=== PATIENT | male | born 1990 | race African-American/Black ===

== ENCOUNTER 2018-08-26 15:08 | Emergency (ER) | payer OTHER ==
[~2018-08-26] VITALS: Ht 185.4 cm; Wt 85.3 kg
[2018-08-26] MEDS ORDERED: D-ME118S2 PO (15:41)
[2018-08-26] MEDS ORDERED: AZIT250T6 PO (15:41)
--- NOTE | 2018-08-26 15:41 | PHYS DOC ---
Past History Past Medical History: No Pertinent History Past Surgical History: No Surgical History Smoking: Cigarettes, Less than 1pk/day Alcohol Use: None Drug Use: None Adult General Chief Complaint Chief Complaint: COUGH HPI HPI Patient is a 28-year-old male presents with a cough for the past week and a leach lf. 5 days ago he experienced fevers for 3 days. That has been doing better. He has had minimal relief with [id number] cough medicines. Nonproductive cough. Patient smokes approximately 3 cigarettes a day. No PE risk factors. No chest pain or palpitations. No recent travel.[] Review of Systems Review of Systems Constitutional: See history of present illness[] Eyes: Denies change in visual acuity, redness, or eye pain [] HENT: Denies nasal congestion or sore throat [] Respiratory: See history of present illness[] Cardiovascular: No chest pain or palpitations[] GI: Denies abdominal pain, nausea, vomiting, bloody stools or diarrhea [] : Denies dysuria or hematuria [] Musculoskeletal: Denies back pain or joint pain [] Integument: Denies rash or skin lesions [] Neurologic: Denies headache, focal weakness or sensory changes [] Endocrine: Denies polyuria or polydipsia [] All other systems were reviewed and found to be within normal limits, except as documented in this note. Allergies Allergies Allergies Coded Allergies Type Severity Reaction Last Updated Verified No Known Drug Allergies 08/26/18 No Physical Exam Physical Exam Constitutional: Well developed, well nourished, no acute distress, non-toxic appearance. [] HENT: Normocephalic, atraumatic, bilateral external ears normal, oropharynx moist, no oral exudates, nose normal. [] Eyes: PERRLA, EOMI, conjunctiva normal, no discharge. [] Neck: Normal range of motion, no tenderness, supple, no stridor. [] Cardiovascular:Heart rate regular rhythm, no murmur [] Lungs & Thorax: Bilateral breath sounds clear to auscultation [] Abdomen: Bowel sounds normal, soft, no tenderness, no masses, no pulsatile masses. No hepato-or splenomegaly[] Skin: Warm, dry, no erythema, no rash. [] Back: No tenderness, no CVA tenderness. [] Extremities: No tenderness, no cyanosis, no clubbing, ROM intact, no edema. [] Neurologic: Alert and oriented X 3, normal motor function, normal sensory funct ion, no focal deficits noted. [] Psychologic: Affect normal, judgement normal, mood normal. [] EKG EKG [] Radiology/Procedures Radiology/Procedures [] Course & Med Decision Making Course & Med Decision Making Pertinent Labs and Imaging studies reviewed. (See chart for details) ED course and medical decision making: Nontoxic patient with normal pulse oximetry, no PE risk factors. Lungs were clear sick doubt pneumonia. Offered patient the option of either chest x-ray or symptomatic care with antibiotics if not doing better in 2 days. Patient chose the second option. Discussed the plan for words. Patient voiced understanding. All questions were answered. Patient was discharged in improved condition.[] Dragon Disclaimer Dragon Disclaimer This electronic medical record was generated, in whole or in part, using a voice recognition dictation system. Departure Departure: Impression: Primary Impression: Cough Disposition: HOME, SELF-CARE Condition: IMPROVED Referrals: [facility] (PCP) Patient Instructions: Acute Bronchitis, Cough, Adult Additional Instructions: Follow-up with your regular doctor in 2 days. If you do not have regular doctor, a list of local primary care clinics will be provided for you. Drink plenty of fluids. Return to the ER if worsening cough, difficulty breathing, or any other concerns. Weight 2 days before filling the prescription for azithromycin. If you're doing better with the prescription cough medicine, do not fill it at all. If doing no better, take it as directed. Stop smoking! Scripts Azithromycin (AZITHROMYCIN TABLET) 250 Mg Tablet 1 PKG PO UD for cough, #6 TAB Prov: ERNESTO UP DO 08/26/18 D-Methorphan Hb/Prometh Hcl (PROMETHAZINE-DM SYRUP) 118 Ml Syrup 5 ML PO PRN Q4HRS for CONGESTION, #120 ML Prov: ERNESTO UP DO 08/26/18 ERNESTO UP DO Aug 26, 2018 15:41
== END 2018-08-26 15:48 | disposition home or self-care (01) ==
LOC: ER 15:08
DX: R05 Cough (principal); R50.9 Fever, unspecified; F17.210 Nicotine dependence, cigarettes, uncomplicated
CPT/HCPCS: 99283